=== PATIENT | female | born 1945 | race Two or more races ===

== ENCOUNTER 2017-03-02 17:59 | Inpatient (IN) | payer MEDICARE, MEDICAID ==
[~2017-03-02] VITALS: Ht 167.6 cm; Wt 44.5 kg
[~2017-03-02 17:59] MED LIST: ALENDRONAT70 MG/75 M PO; ASPIRIN81 MG ORAL; CARAFATE1 G1 ORAL; CATAPRES0.1 MG ORAL; CIMETIDINE300 MG ORAL; CYPROHEPTADINE H4 MG PO; DOCUSATE SODIU250 MG ORAL; HYDROCHLOROTHIA50 MG ORAL; IPRATROPIU0.2 MG/1 M HHN; MULTIVITAMINS1 EAC2 ORAL; NITROSTAT0.4 M2 SL; NORCO 5-325 TA1 EACH ORAL; OMEPRAZOLE20 M2 ORAL; PRAVACHOL20 MG ORAL; PRAVASTATIN SOD20 M1 ORAL; PREDNISONE20 M1 PO; PROCHLORPERAZINE5 MG ORAL; SPIRIVA18 MCG INH; TYLENOL650 MG/20. ORAL; VERAPAMIL ER240 M2 PO; VITAMIN C500 M1 ORAL
[2017-03-02] MEDS ORDERED: Solu-MEDROL 125mg Inj IVP ONE (18:30)
[2017-03-02] MEDS ORDERED: Terbutaline 1mg/ml Inj SUBQ ONE (18:30)
[2017-03-02] MEDS ORDERED: cefTRIAXone 2 GM in NS 110 ML IVPB ONE (18:30)
[2017-03-02] MEDS ORDERED: Azithromycin 500 MG in NS 275 ML IV ONE (18:30)
[2017-03-02 18:32] VITALS: BP 176/84
[2017-03-02] MEDS ORDERED: Azithromycin Inj IV ONE (18:35)
[2017-03-02] MEDS: Ipratropium 0.02% Inh Soln 2.5ml UD HHN SCH ×3 (18:49→19:01)
[2017-03-02] MEDS: Albuterol ud Inhalation HHN SCH ×3 (18:50→19:01)
[2017-03-02 19:13] VITALS: BP 145/74
[2017-03-02 19:15] LABS: BASOPHILS % (AUTO) 1.4 % (0.0-2.0); LYMPHOCYTES % (AUTO) 9.9 % (20.0-45.0); MEAN CORPUSCULAR HEMOGLOBIN 33.1 PG (27.0-31.0); MEAN CORPUSCULAR HGB CONC 31.9 G/DL (32.0-36.0); MEAN CORPUSCULAR VOLUME 104 FL (80-99); MEAN PLATELET VOLUME 7.6 FL (6.5-10.1); NEUTROPHILS % (AUTO) 84.7 % (45.0-75.0); PLATELET COUNT 142 K/UL (150-450); RED BLOOD COUNT 3.76 M/UL (4.20-5.40); WHITE BLOOD COUNT 7.9 K/UL (4.8-10.8)
[2017-03-02 19:26] LABS: ALBUMIN/GLOBULIN RATIO 1.4 (1.0-2.7); CALCIUM 8.5 mg/dL (8.6-10.2); POTASSIUM 3.7 mEQ/L (3.4-4.9); TOTAL PROTEIN 6.1 g/dL (6.6-8.7); TROPONIN I < 0.30 ng/mL (<=0.30)
[2017-03-02 19:37] LABS: CKMB 2.8 ng/mL (< 3.8)
[2017-03-02 20:49] VITALS: BP 113/52
--- NOTE | 2017-03-02 21:27 | Emergency Room Report ---
History of Present Illness General Chief Complaint: Dyspnea/Respdistress Source: Patient, EMS Present Illness HPI 71YO F presents BIBEMS with severe SOB for last day. Assoc with cough but no fever/chills, chest pain, ABd pain, urinary complaints. No improvement with Nebs at home. Given nebs en route by EMS. history of asthma. Never been intubated but has been on BIPAP before. Allergies: Coded Allergies: No Known Allergies (Unverified , 12/10/14) Patient History Past Medical History: asthma Past Surgical History: none Pertinent Family History: none Social History: Reports: smoking Now: No Immunizations: UTD Reviewed Nursing Documentation: PMH: Agreed, PSxH: Agreed Nursing Documentation-PMH Hx Hypertension: Yes Hx COPD: Yes Review of Systems All Other Systems: negative except mentioned in HPI Physical Exam Vital Signs Date Time Temp Pulse Resp B/P Pulse Ox O2 Delivery O2 Flow Rate FiO2 03/02/17 17:54 135 24 176/84 93 Room Air 03/02/17 18:30 30 03/02/17 18:32 4.0 03/02/17 18:32 101.9 Sp02 EP Interpretation: reviewed, abnormal General Appearance: normal inspection, well appearing, alert, GCS 15, non-toxic , moderate distress Head: normocephalic, atraumatic Eyes: bilateral eye EOMI, bilateral eye PERRL ENT: normal ENT inspection, hearing grossly normal, normal voice Neck: normal inspection, full range of motion, supple, no bony tend Respiratory: normal inspection, respiratory distress, decreased breath sounds, accessory muscle use, wheezing Cardiovascular #1: regular rate, rhythm, no edema Gastrointestinal: normal inspection, normal bowel sounds, non tender, soft, no guarding, no hernia Genitourinary: no CVA tenderness Musculoskeletal: normal inspection, back normal, normal range of motion, Angella' s Sign negative Neurologic: normal inspection, alert, oriented x3, responsive, intake man III-XII nml as tested, motor strength/tone normal, speech normal Psychiatric: normal inspection, judgement/insight normal, mood/affect normal Skin: normal inspection, normal color, no rash Lymphatic: normal inspection Medical Decision Making Medicare Attestation I Domenic Bundy MD hereby attest that the medical record entry for date of service, 11/02/16 accurately reflects signatures/notations that I made in my capacity as MD when I treated/diagnosed the above listed Medicare beneficiary. I attest that this information is true, accurate and complete to the best of my knowledge. I understand that any falsification, omission, or concealment of material fact may subject me to administrative, civil, or criminal liability. This patient warrants hospital admission for extreme of age and has a condition that cannot be treated as outpatient. Diagnostic Impression: Primary Impression: COPD exacerbation ER Course Labs: No leuks. H&H stable. Troponin, BNP WNL. CXR: No PNA A: Dyspnea, COPD/asthma exacerbation Significant improvement after bipap, Mg, nebs, steroids No obvious Pna Empiric Azithro given for COPD exac Blood Cx pending Endorsed to Dr Gomez at 1005pm Rhythm Strip Diag. Results EP Interpretation: yes Rate: 112 Rhythm: NSR, no PVC's, no ectopy Chest X-Ray Diagnostic Results EP Interpretation: Yes Findings: no consolidation, no effusion, no pneumothorax, no acute cardiopulmonary disease Number of Views: 1 Last Vital Signs Date Time Temp Pulse Resp B/P Pulse Ox O2 Delivery O2 Flow Rate FiO2 03/02/17 21:06 114 16 97 Facial 30 03/02/17 20:49 98.4 113/52 03/02/17 18:32 4.0 Status: improved Disposition: ADMITTED INPATIENT Condition: Serious DOMENIC BUNDY M.D. Mar 02, 2017 21:27
[2017-03-02 22:30] VITALS: BP 126/55
[2017-03-02] MEDS ORDERED: UNOBMED (23:27)
[2017-03-03] MEDS ORDERED: DuoNeb 0.5-3(2.5)mg/3ml neb HHN PRN (00:15)
[2017-03-03] MEDS ORDERED: LORazepam Inj 2mg/ml 1ml IV PRN (00:15)
[2017-03-03] MEDS ORDERED: Norco 5mg/325mg tab ORAL PRN (00:15)
[2017-03-03] MEDS ORDERED: Ketorolac 30mg Inj IV PRN (00:15)
[2017-03-03] MEDS ORDERED: Promethazine/Codeine 5ml UD ORAL PRN (00:15)
[2017-03-03] MEDS ORDERED: Morphine Sulfate 2mg/ml Inj IVP PRN (00:15)
[2017-03-03] MEDS ORDERED: Nitroglycerin Subl 0.4mg tab (Bottle Of 25) SL PRN (00:15)
[2017-03-03 00:30] VITALS: BP 133/53
[2017-03-03 01:30] VITALS: BP 135/60
[2017-03-03 04:00] VITALS: BP 149/80
[2017-03-03] MEDS ORDERED: Zosyn 2.25gm inj ONE (05:03)
[2017-03-03] MEDS: Piperacillin/Tazobactam 2.25 GM in D5W 55 ML IV SCH ×3 (05:40→21:25)
[2017-03-03] MEDS: Solu-MEDROL 125mg Inj IV SCH ×4 (06:09→23:53)
[2017-03-03] MEDS: NovoLOG Insulin Flexpen SUBQ SCH ×4 (06:46→20:10)
[2017-03-03 08:00] VITALS: BP 133/83
[2017-03-03] MEDS: Heparin 5000 units/ml inj SUBQ SCH ×2 (09:00→20:09)
[2017-03-03] MEDS: Aspirin Baby 81mg ORAL SCH (09:12)
[2017-03-03] MEDS: Theophylline ER 100mg ORAL SCH ×2 (09:12→20:08)
--- NOTE | 2017-03-03 10:38 | Consultation ---
History of Present Illness General Date patient seen: Mar 03, 2017 Chief Complaint: Dyspnea/Respdistress Referring physician: Dr. evans Reason for Consultation: dyspnea Present Illness HPI 71 year old female with hx of chronic lung disease on home O2, cachectic, chronically ill looking lady was brought in by paramedics because of dyspnea. Her Pulse oximeter was 70% on nasal cannula. She was in respiratory distress in ER and was put on BIPAP. Her CT angio didn't show any PE, but showed chronic changes c/w COPD. She had been coughing up some phlegm and is having fevers for the last few days. Allergies: Coded Allergies: No Known Allergies (Unverified , 12/10/14) Medication History Scheduled Alendronate Sodium (Alendronate Sodium), 70 MG PO QWEEK, (Reported) Ascorbic Acid* (Vitamin C*), 500 MG ORAL TWICE A DAY, (Reported) Aspirin* (Aspirin*), 81 MG ORAL DAILY, (Reported) Clonidine Hcl* (Catapres*), 0.1 MG ORAL TID, (Reported) Docusate Sodium* (Docusate Sodium*), 250 MG ORAL DAILY, (Reported) Hydrochlorothiazide* (Hydrochlorothiazide*), 50 MG ORAL DAILY, (Reported) Multivitamins* (Multivitamins*), 1 TAB ORAL DAILY, (Reported) Omeprazole (Omeprazole), 20 MG ORAL DAILY, (Reported) Pravastatin Sod* (Pravachol*), 20 MG ORAL BEDTIME, (Reported) Pravastatin Sod* (Pravastatin Sod*), 20 MG ORAL BEDTIME, (Reported) Prednisone (Prednisone), 20 MG PO DAILY, (Reported) Sucralfate* (Carafate*), 1 GM ORAL FOUR TIMES A DAY, (Reported) Tiotropium [place]* (Spiriva*), 1 PUFF INH DAILY, (Reported) Verapamil Hcl (Verapamil Er), 240 MG PO DAILY, (Reported) Scheduled PRN Acetaminophen (Acetaminophen), 650 MG ORAL Q6H PRN for Prn Headache/Temp > 101, (Reported) Cyproheptadine Hcl (Cyproheptadine Hcl), 4 MG PO PRN PRN for Itching, (Reported) Hydrocodone Bit/Acetaminophen 5-325* (Kent 5-325*), 1 TAB ORAL Q4H PRN for For Pain, (Reported) Ipratropium [place] 0.5MG/2.5ML (Ipratropium [place] 0.5MG/2.5ML), 0.5 MG HHN Q4HR PRN for Shortness of Breath, (Reported) Nitroglycerin (Nitrostat), 0.4 MG SL for cp, (Reported) Miscellaneous Medications Unable to Obtain Medications (Unable To Obtain Meds), (Reported) Patient History Healthcare decision maker Resuscitation status Full Code Advanced Directive on File No Past Medical/Surgical History Past Medical/Surgical History: (1) Emphysema/COPD (2) Debility (3) Cachexia Review of Systems All Other Systems: negative except mentioned in HPI Physical Exam General Appearance: cachetic Lines, tubes and drains: peripheral HEENT: normocephalic, atraumatic Neck: non-tender, normal alignment Respiratory/Chest: rhonchi - bilaterally Cardiovascular/Chest: normal peripheral pulses, normal rate Abdomen: normal bowel sounds, non tender Genitourinary/Rectal: normal genital exam, heme negative stool Extremities: normal range of motion Neurologic: media associate II-XII grossly normal Last 24 Hour Vital Signs Date Time Temp Pulse Resp B/P Pulse Ox O2 Delivery O2 Flow Rate FiO2 03/03/17 09:02 94 16 99 8.0 03/03/17 08:00 96.3 104 20 133/83 100 Venturi Mask 40 03/03/17 06:53 97 16 99 8.0 03/03/17 05:03 105 14 97 8.0 03/03/17 04:00 97.7 96 20 149/80 100 Bi-pap 03/03/17 04:00 30 03/03/17 04:00 96 03/03/17 03:20 106 20 98 Facial 30 03/03/17 01:30 97.0 103 22 135/60 99 Bi-pap 03/03/17 01:20 98.5 96 20 133/53 99 Bi-pap 30 03/03/17 00:51 99 20 99 Facial 30 03/03/17 00:30 98.5 96 28 133/53 100 Bi-pap 30 03/02/17 23:30 107 22 98 Facial 30 03/02/17 22:30 98.8 106 25 126/55 100 Bi-pap 30 03/02/17 21:06 114 16 97 Facial 30 03/02/17 20:49 98.4 118 19 113/52 98 Bi-pap 30 03/02/17 19:18 101.0 03/02/17 19:13 129 25 145/74 94 Bi-pap 03/02/17 19:00 127 20 100 Bi-pap 30 03/02/17 18:50 126 20 100 Bi-pap 30 03/02/17 18:50 128 20 100 Bi-pap 30 03/02/17 18:40 127 24 100 Bi-pap 30 03/02/17 18:40 127 20 100 Bi-pap 30 03/02/17 18:32 101.9 138 24 176/84 93 Room Air 03/02/17 18:32 135 24 Nasal Cannula 4.0 03/02/17 18:30 120 33 100 Bi-pap 30 03/02/17 18:30 127 33 100 Facial 30 03/02/17 18:30 30 03/02/17 17:54 135 24 176/84 93 Room Air Intake and Output 03/02/17 03/03/17 19:00 07:00 Intake Total 100 ml Output Total 200 ml Balance 100 ml -200 ml Intake Oral 100 ml Output Urine Total 200 ml # Voids 1 # Bowel Movements 2 Laboratory Tests Test 03/02/17 18:45 White Blood Count 7.9 K/UL (4.8-10.8) Red Blood Count 3.76 M/UL (4.20-5.40) L Hemoglobin 12.4 G/DL (12.0-16.0) Hematocrit 39.0 % (37.0-47.0) Mean Corpuscular Volume 104 FL (80-99) H Mean Corpuscular Hemoglobin 33.1 PG (27.0-31.0) H Mean Corpuscular Hemoglobin Concent 31.9 G/DL (32.0-36.0) L Red Cell Distribution Width 13.0 % (11.6-14.8) Platelet Count 142 K/UL (150-450) L Mean Platelet Volume 7.6 FL (6.5-10.1) Neutrophils (%) (Auto) 84.7 % (45.0-75.0) H Lymphocytes (%) (Auto) 9.9 % (20.0-45.0) L Monocytes (%) (Auto) 4.0 % (1.0-10.0) Eosinophils (%) (Auto) 0.0 % (0.0-3.0) Basophils (%) (Auto) 1.4 % (0.0-2.0) Sodium Level 136 mEQ/L (135-145) Potassium Level 3.7 mEQ/L (3.4-4.9) Chloride Level 97 mEQ/L (98-107) L Carbon Dioxide Level 21 mEQ/L (20-30) Anion Gap 18 (5-15) H Blood Urea Nitrogen 10 mg/dL (7-23) Creatinine 1.0 mg/dL (0.5-0.9) H Estimat Glomerular Filtration Rate 55.0 mL/min (>60) Glucose Level 106 mg/dL (74-106) Calcium Level 8.5 mg/dL (8.6-10.2) L Total Bilirubin 0.9 mg/dL (0.0-1.2) Aspartate Amino Transf (AST/SGOT) 40 U/L (5-40) Alanine Aminotransferase (ALT/SGPT) 21 U/L (3-33) Alkaline Phosphatase 48 U/L (35-104) Total Creatine Kinase 426 U/L (26-140) H Creatine Kinase MB 2.8 ng/mL (< 3.8) Creatine Kinase MB Relative Index 0.6 Troponin I < 0.30 ng/mL (<=0.30) Pro-B-Type Natriuretic Peptide 249 pg/mL (0-125) H Total Protein 6.1 g/dL (6.6-8.7) L Albumin 3.6 g/dL (3.5-5.2) Globulin 2.5 g/dL Albumin/Globulin Ratio 1.4 (1.0-2.7) Height (Feet): 5 Height (Inches): 6.00 Weight (Pounds): 98 Medications Current Medications Medications (Trade) Dose Ordered Sig/Khloe Route PRN Reason Start Time Stop Time Status Last Admin Dose Admin Acetaminophen/ Hydrocodone Bitart ([place] 5/325) 1 tab Q4H PRN ORAL For Pain 03/03/17 00:15 03/10/17 00:14 Albuterol/ Ipratropium (DuoNeb 0.5-3(2.5)mg/3ml) 3 ml Q4HRT PRN HHN dyspnea 03/03/17 00:15 03/08/17 00:14 Aspirin (ASA) 81 mg DAILY ORAL 03/03/17 09:00 04/02/17 08:59 03/03/17 09:12 Dextrose (Dextrose 50%) STAT PRN IV Hypoglycemia 03/03/17 00:15 04/02/17 00:14 Heparin Sodium (Porcine) (Heparin 5000 units/ml) 5,000 units EVERY 12 HOURS SUBQ 03/03/17 09:00 04/02/17 08:59 Insulin Aspart (NovoLOG) BEFORE MEALS AND HS SUBQ 03/03/17 06:30 04/02/17 06:29 03/03/17 06:46 Lorazepam (Ativan 2mg/ml 1ml) 0.5 mg Q4H PRN IV For Anxiety 03/03/17 00:15 03/10/17 00:14 Methylprednisolone Sodium Succinate (Solu-MEDROL) 60 mg EVERY 6 HOURS IV 03/03/17 06:00 04/02/17 05:59 03/03/17 06:09 Morphine Sulfate (Morphine Sulfate) 2 mg Q4H PRN IVP severe pain 7-10 03/03/17 00:15 03/10/17 00:14 Nitroglycerin (Ntg) 0.4 mg Q5M X 3 DOSES PRN SL Prn Chest Pain 03/03/17 00:15 04/02/17 00:14 Ondansetron HCl (Zofran) 4 mg Q6H PRN IVP Nausea & Vomiting 03/03/17 00:15 04/02/17 00:14 Piperacillin Sod/ Tazobactam Sod/ Dextrose (Zosyn/D5W) 55 ml @ 110 mls/hr EVERY 8 HOURS IV 03/03/17 06:00 03/08/17 05:59 03/03/17 05:40 Pravastatin Sodium (Pravachol) 20 mg BEDTIME ORAL 03/03/17 21:00 04/02/17 20:59 Promethazine HCl/ Codeine (Phenergan with Codeine) 5 ml Q6H PRN ORAL cough 03/03/17 00:15 04/02/17 00:14 Temazepam (Restoril) 15 mg HSPRN PRN ORAL Insomnia 03/03/17 00:15 03/10/17 00:14 Theophylline 100 mg 100 mg EVERY 12 HOURS ORAL 03/03/17 09:00 04/02/17 08:59 03/03/17 09:12 Assessment/Plan Problem List: (1) COPD exacerbation ICD Codes: J44.1 - Chronic obstructive pulmonary disease with (acute) exacerbation SNOMED: 188025687, 261891868 (2) Bronchitis ICD Codes: J40 - Bronchitis SNOMED: 92963226 (3) Cachexia ICD Codes: R64 - Cachexia SNOMED: 942324889 (4) Debility ICD Codes: R53.81 - Debility SNOMED: 29950828 Assessment/Plan titrate bipap and oxygen IV steroids IV antibiotics check sputum dvt prophylaxis might go to med/surg in am . MARITZA SNEED Mar 03, 2017 10:38
[2017-03-03 11:02] LABS: MEAN CORPUSCULAR HEMOGLOBIN 32.6 PG (27.0-31.0); MEAN CORPUSCULAR HGB CONC 31.5 G/DL (32.0-36.0); MEAN CORPUSCULAR VOLUME 104 FL (80-99); MEAN PLATELET VOLUME 7.4 FL (6.5-10.1); PLATELET COUNT 186 K/UL (150-450); RED BLOOD COUNT 4.25 M/UL (4.20-5.40); RED CELL DISTRIBUTION WIDTH 13.1 % (11.6-14.8)
[2017-03-03 11:40] LABS: ALANINE AMINOTRANSFERASE 22 U/L (3-33); ALBUMIN/GLOBULIN RATIO 1.2 (1.0-2.7); ANION GAP 18 (5-15); ASPARTATE AMINO TRANSFERASE 38 U/L (5-40); CALCIUM 8.9 mg/dL (8.6-10.2); CARBON DIOXIDE 23 mEQ/L (20-30); CHLORIDE 100 mEQ/L (98-107); CREATININE 0.9 mg/dL (0.5-0.9); GLOMERULAR FILTRATION RATE > 60 mL/min (>60); HEMOLYSIS 3; POTASSIUM 4.7 mEQ/L (3.4-4.9); SODIUM 141 mEQ/L (135-145); TOTAL PROTEIN 6.7 g/dL (6.6-8.7)
[2017-03-03 11:47] LABS: BAND NEUTROPHILS % (MANUAL) 0 % (0-8); BASOPHILS % (MANUAL) 0 % (0-2); EOSINOPHILS % (MANUAL) 0 % (0-3); HYPOCHROMASIA 1+; LYMPHOCYTES % (MANUAL) 7 % (20-45); MACROCYTES 1+; NEUTROPHILS % (MANUAL) 91 % (45-75); PLATELET ESTIMATE ADEQUATE; PLATELET MORPHOLOGY NORMAL; TOTAL CELLS COUNTED 100
[2017-03-03 12:00] VITALS: BP 157/79
--- NOTE | 2017-03-03 12:52 | History & Physical ---
History and Physical History & Physicial Dictated for Int Med-Dr Gomez no. [id number]. JESUS WALL Mar 03, 2017 12:52
[2017-03-03] MEDS ORDERED: Tubing IV Secondary IV ONE (18:35)
[2017-03-03] MEDS ORDERED: NS 275ml ONE (18:35)
[2017-03-03 20:00] VITALS: BP 135/74
--- NOTE | 2017-03-03 23:08 | Cardiology Report ---
APPROVED REPORT EKG Measurement Heart [id number] Sinus tachycardia with occasional premature ventricular complexes Possible Left atrial enlargement Cannot rule out Anteroseptal infarct, age undetermined Abnormal ECG
[2017-03-04] VITALS (7 sets, daily range): BP systolic 129–152; BP diastolic 61–80
[2017-03-04 05:06] LABS: MEAN CORPUSCULAR HEMOGLOBIN 32.6 PG (27.0-31.0); MEAN CORPUSCULAR HGB CONC 31.8 G/DL (32.0-36.0); MEAN CORPUSCULAR VOLUME 103 FL (80-99); MEAN PLATELET VOLUME 7.4 FL (6.5-10.1); PLATELET COUNT 196 K/UL (150-450); RED BLOOD COUNT 4.33 M/UL (4.20-5.40); RED CELL DISTRIBUTION WIDTH 12.8 % (11.6-14.8); WHITE BLOOD COUNT 11.1 K/UL (4.8-10.8)
[2017-03-04 05:31] LABS: ALANINE AMINOTRANSFERASE 22 U/L (3-33); ALBUMIN/GLOBULIN RATIO 1.1 (1.0-2.7); ANION GAP 14 (5-15); ASPARTATE AMINO TRANSFERASE 34 U/L (5-40); CALCIUM 8.7 mg/dL (8.6-10.2); CARBON DIOXIDE 22 mEQ/L (20-30); CHLORIDE 106 mEQ/L (98-107); CREATININE 0.8 mg/dL (0.5-0.9); GLOMERULAR FILTRATION RATE > 60 mL/min (>60); HEMOLYSIS 2; POTASSIUM 4.7 mEQ/L (3.4-4.9); SODIUM 142 mEQ/L (135-145); TOTAL PROTEIN 6.4 g/dL (6.6-8.7)
[2017-03-04] MEDS: Solu-MEDROL 125mg Inj IV SCH ×3 (05:56→22:03)
[2017-03-04] MEDS: Piperacillin/Tazobactam 2.25 GM in D5W 55 ML IV SCH ×2 (05:57→14:00)
[2017-03-04] MEDS: NovoLOG Insulin Flexpen SUBQ SCH ×4 (06:00→22:06)
[2017-03-04] MEDS: Theophylline ER 100mg ORAL SCH ×2 (08:55→22:02)
[2017-03-04] MEDS: Aspirin Baby 81mg ORAL SCH (08:55)
[2017-03-04] MEDS: Heparin 5000 units/ml inj SUBQ SCH ×2 (08:57→22:07)
--- NOTE | 2017-03-04 08:58 | History and Physical Report ---
CHIEF COMPLAINT: The patient is a 71-year-old female with a history of chronic obstructive pulmonary disease, who presents with chief complaint of shortness of breath. HISTORY OF PRESENT ILLNESS: Began on 03/02/2017. The patient states she awoke with a cough. Cough was productive of a whitish sputum. The patient denies fevers or chills. The patient states she became increasingly short of breath. The patient called EMS. The patient was transported to [place] emergency room. The patient was admitted for acute exacerbation of chronic obstructive pulmonary disease. PAST MEDICAL HISTORY: Significant for, 1. Chronic obstructive pulmonary disease. 2. Hypertension. 3. Osteoporosis. PAST SURGICAL HISTORY: Significant for small bowel obstruction and lysis of adhesions x2. CURRENT MEDICATIONS: 1. Fosamax 70 mg one tablet p.o. q. weekly. 2. Vitamin C 500 mg one tablet p.o. twice daily. 3. Aspirin 81 mg one tablet p.o. daily. 4. Clonidine 0.1 mg one tablet p.o. 3 times daily. 5. Zyrtec 4 mg one tablet p.o. daily. 6. Hydrochlorothiazide 50 mg one tablet p.o. daily. 7. Renick 5/325 mg one tablet p.o. q.4 hours p.r.n. 8. Atrovent 0.5 mg nebulized q.4 hours p.r.n. 9. Multivitamin daily. 10. Nitroglycerin 0.4 mg sublingual p.r.n. 11. Omeprazole 20 mg one tablet p.o. daily. 12. Pravastatin 20 mg one tablet p.o. daily. 13. Prednisone 20 mg one tablet p.o. daily. 14. Sucralfate 1 g p.o. 4 times daily. 15. Spiriva one puff daily. 16. Verapamil 240 mg one tablet p.o. daily. ALLERGIES: No known drug allergies. SOCIAL HISTORY: The patient is a . The patient denies tobacco or alcohol use. The patient states she quit smoking in 1998. REVIEW OF SYSTEMS: Constitutional: The patient denies weight loss or weight gain. The patient denies fevers or chills. HEENT: The patient denies ear or throat pain. Cardiovascular: The patient denies palpitations or chest pain. Chest: The patient complains of cough as above. The patient complains of wheezes. The patient complains of sputum production. Abdomen: The patient denies nausea, vomiting, diarrhea, or constipation. Genitourinary: The patient denies dysuria or increased frequency of urination. Neuromuscular: The patient denies seizures or generalized weakness. PHYSICAL EXAMINATION: VITAL SIGNS: Temperature 96.3 degrees, respirations 20, pulse 104, and blood pressure 133/83. GENERAL: The patient is a thin-appearing, female, in no apparent distress. HEENT: Eyes, pupils are equal and responsive to light and accommodation. Extraocular movements are intact. NECK: Supple without lymphadenopathy. CHEST: Few wheezes at bilateral lower bases otherwise clear to auscultation bilaterally without wheezes or rales. CARDIOVASCULAR: Regular rhythm and rate. S1 and S2 are normal without murmurs, rubs, or gallops. ABDOMEN: Soft, nontender, and nondistended. Positive bowel sounds. No evidence of hepatosplenomegaly. Currently, no rebound or guarding noted. EXTREMITIES: Negative for clubbing, cyanosis, or edema. RECTAL/GENITAL: Refused. NEUROLOGIC: Cranial nerves II through XII are grossly intact without focal deficits. Motor strength is 5/5 bilaterally. Deep tendon reflexes are 2+ plantar. LABORATORY AND DIAGNOSTIC STUDIES: WBC 7.9, hemoglobin 12.4, hematocrit 39.0, and platelets 142,000. Sodium 136, potassium 3.7, chloride 97, CO2 29, BUN 10, creatinine 1.0, and glucose 106. Troponin is less than 0.3. BNP is 249. Chest x-ray is pending. ASSESSMENT: This is a 71-year-old female. 1. Chronic obstructive pulmonary disease, acute exacerbation. 2. Acute bronchitis. 3. Hypertension. 4. Osteoporosis. TREATMENT: 1. Chronic obstructive pulmonary disease exacerbation. Pulmonary consultation was obtained with Dr. Lior Ellis. The patient is currently receiving albuterol nebulized q.4 hours p.r.n. The patient is currently on Solu-Medrol intravenously. We will follow recommendation of Pulmonary. 2. Hypertension. Continue diltiazem as above. 3. Osteoporosis. Continue Fosamax as above. 4. Hypercholesterolemia. Continue Pravachol as above. Sunny Boss, M.D. DR: OLGA JOB#: [id number] CC:
--- NOTE | 2017-03-04 10:17 | Diagnostic Imaging Report ---
Indication: DYSPNEA Technique: One view of the chest Comparison: 12/10/2014 Findings: There is marked central bronchial wall thickening bilaterally again demonstrated. Old granulomas calcifications are seen at the right lung base. The lungs and pleural spaces are otherwise clear. Inspiration is better on the current exam. The heart size is normal. Impression: No acute process Evidence of old granulomatous disease Marked central bronchial wall thickening, suspect on the basis of chronic bronchitis/COPD changes
[2017-03-04] MEDS ORDERED: DuoNeb 0.5-3(2.5)mg/3ml neb HHN SCH (11:00)
[2017-03-04] MEDS ORDERED: Norco 5mg/325mg tab ORAL PRN (14:30)
[2017-03-04] MEDS ORDERED: Promethazine/Codeine 5ml UD ORAL PRN (14:30)
[2017-03-04] MEDS ORDERED: Nitroglycerin Subl 0.4mg tab (Bottle Of 25) SL PRN (15:00)
[2017-03-04] MEDS: DuoNeb 0.5-3(2.5)mg/3ml neb HHN SCH ×3 (15:00→22:01)
[2017-03-04] MEDS ORDERED: LORazepam Inj 2mg/ml 1ml IV PRN (15:00)
[2017-03-04] MEDS ORDERED: Morphine Sulfate 2mg/ml Inj IVP PRN (15:30)
--- NOTE | 2017-03-04 16:14 | Pulmonology Progress Note ---
Assessment/Plan Problems: (1) COPD exacerbation (2) Bronchitis (3) Cachexia (4) Debility Subjective Allergies: Coded Allergies: No Known Allergies (Unverified , 12/10/14) Objective Last 24 Hour Vital Signs Date Time Temp Pulse Resp B/P Pulse Ox O2 Delivery O2 Flow Rate FiO2 03/04/17 14:55 97.9 100 21 144/77 98 Venturi Mask 40 03/04/17 13:48 103 20 100 Venturi Mask 8.0 40 03/04/17 13:33 40 03/04/17 13:33 101 24 98 Venturi Mask 8.0 40 03/04/17 12:00 98.0 100 26 129/72 98 Venturi Mask 8.0 40 03/04/17 12:00 101 03/04/17 08:00 104 03/04/17 08:00 97.7 105 26 135/61 98 03/04/17 07:14 98 Venturi Mask 8.0 40 03/04/17 07:14 Venturi Mask 8.0 40 03/04/17 07:14 110 18 Venturi Mask 8.0 40 03/04/17 06:05 103 20 98 Venturi Mask 8.0 30 03/04/17 05:55 30 03/04/17 05:54 101 22 97 Venturi Mask 8.0 40 03/04/17 04:00 8.0 40 03/04/17 04:00 92 03/04/17 04:00 97.9 101 20 132/76 99 Venturi Mask 03/04/17 00:00 93 03/04/17 00:00 8.0 40 03/04/17 00:00 98.0 96 20 152/69 97 Venturi Mask 8.0 40 03/03/17 20:30 Venturi Mask 8.0 30 03/03/17 20:30 99 Venturi Mask 8.0 30 03/03/17 20:00 30 03/03/17 20:00 97.5 92 18 135/74 99 Bi-pap 03/03/17 20:00 96 03/03/17 18:37 105 35 99 30 03/03/17 18:30 30 03/03/17 17:01 87 18 98 8.0 Intake and Output 03/03/17 03/04/17 19:00 07:00 Intake Total 455 ml 165 ml Balance 455 ml 165 ml Intake Oral 400 ml IV Total 55 ml 165 ml # Voids 5 Microbiology Date/Time Source Procedure Growth Status 03/02/17 18:55 Blood Blood Culture - Preliminary NO GROWTH AFTER 24 HOURS Resulted 03/02/17 18:45 Blood Blood Culture - Preliminary NO GROWTH AFTER 24 HOURS Resulted Laboratory Tests 03/04/17 04:25: White Blood Count 11.1#H, Red Blood Count 4.33, Hemoglobin 14.1, Hematocrit 44.4 , Mean Corpuscular Volume 103H, Mean Corpuscular Hemoglobin 32.6H, Mean Corpuscular Hemoglobin Concent 31.8L, Red Cell Distribution Width 12.8, Platelet Count 196, Mean Platelet Volume 7.4, Neutrophils (%) (Auto) , Lymphocytes (%) (Auto) , Monocytes (%) (Auto) , Eosinophils (%) (Auto) , Basophils (%) (Auto) , Sodium Level 142, Potassium Level 4.7, Chloride Level 106 , Carbon Dioxide Level 22, Anion Gap 14, Blood Urea Nitrogen 17, Creatinine 0.8 , Estimat Glomerular Filtration Rate > 60, Glucose Level 151H, Calcium Level 8.7 , Total Bilirubin 0.5, Aspartate Amino Transf (AST/SGOT) 34, Alanine Aminotransferase (ALT/SGPT) 22, Alkaline Phosphatase 72, Total Protein 6.4L, Albumin 3.4L, Globulin 3.0, Albumin/Globulin Ratio 1.1 Current Medications Medications (Trade) Dose Ordered Sig/Khloe Route PRN Reason Start Time Stop Time Status Last Admin Dose Admin Acetaminophen/ Hydrocodone Bitart ([place] 5/325) 1 tab Q4H PRN ORAL Moderate Pain (Pain Scale 4-6) 03/04/17 14:30 03/11/17 14:29 Albuterol/ Ipratropium (DuoNeb 0.5-3(2.5)mg/3ml) 3 ml Q4HRT HHN 03/04/17 15:00 03/09/17 14:59 Aspirin (ASA) 81 mg DAILY ORAL 03/05/17 09:00 04/04/17 08:59 Dextrose (Dextrose 50%) STAT PRN IV Hypoglycemia 03/04/17 14:30 04/03/17 14:29 Heparin Sodium (Porcine) (Heparin 5000 units/ml) 5,000 units EVERY 12 HOURS SUBQ 03/04/17 21:00 04/03/17 20:59 Insulin Aspart (NovoLOG) BEFORE MEALS AND HS SUBQ 03/04/17 16:30 04/03/17 16:29 Lorazepam (Ativan 2mg/ml 1ml) 0.5 mg Q4H PRN IV For Anxiety 03/04/17 15:00 03/11/17 14:59 Methylprednisolone Sodium Succinate (Solu-MEDROL) 60 mg EVERY 6 HOURS IV 03/04/17 18:00 04/03/17 17:59 Morphine Sulfate (Morphine Sulfate) 2 mg Q4H PRN IVP Severe Pain (Pain Scale 7-10) 03/04/17 15:30 03/11/17 15:29 Nitroglycerin (Ntg) 0.4 mg Q5M X 3 DOSES PRN SL Prn Chest Pain 03/04/17 15:00 04/03/17 14:59 Ondansetron HCl (Zofran) 4 mg Q6H PRN IVP Nausea & Vomiting 03/04/17 14:30 04/03/17 14:29 Piperacillin Sod/ Tazobactam Sod/ Sodium Chloride (Zosyn/Sodium Chloride) 110 ml @ 27.5 mls/hr EVERY 8 HOURS IVPB 03/04/17 22:00 03/11/17 21:59 Pravastatin Sodium (Pravachol) 20 mg BEDTIME ORAL 03/04/17 21:00 04/03/17 20:59 Promethazine HCl/ Codeine (Phenergan with Codeine) 5 ml Q6H PRN ORAL cough 03/04/17 14:30 04/03/17 14:29 Temazepam (Restoril) 15 mg HSPRN PRN ORAL Insomnia 03/04/17 21:00 03/11/17 20:59 Theophylline (Faisal-Dur) 100 mg EVERY 12 HOURS ORAL 03/04/17 21:00 04/03/17 20:59 MARITZA SNEED Mar 04, 2017 16:14
[2017-03-04] MEDS ORDERED: Sterile Water Irrig 1000ml IRRIG ONE (16:37)
--- NOTE | 2017-03-04 17:37 | Internal Med Progress Note ---
Subjective Date of Service: Mar 04, 2017 Physician Name Jesus Wall Attending Physician Marco Gomez MD Current Medications Medications (Trade) Dose Ordered Sig/Khloe Route PRN Reason Start Time Stop Time Status Last Admin Dose Admin Acetaminophen/ Hydrocodone Bitart ([place] 5/325) 1 tab Q4H PRN ORAL Moderate Pain (Pain Scale 4-6) 03/04/17 14:30 03/11/17 14:29 Albuterol/ Ipratropium (DuoNeb 0.5-3(2.5)mg/3ml) 3 ml Q4HRT HHN 03/04/17 15:00 03/09/17 14:59 Aspirin (ASA) 81 mg DAILY ORAL 03/05/17 09:00 04/04/17 08:59 Dextrose (Dextrose 50%) STAT PRN IV Hypoglycemia 03/04/17 14:30 04/03/17 14:29 Heparin Sodium (Porcine) (Heparin 5000 units/ml) 5,000 units EVERY 12 HOURS SUBQ 03/04/17 21:00 04/03/17 20:59 Insulin Aspart (NovoLOG) BEFORE MEALS AND HS SUBQ 03/04/17 16:30 04/03/17 16:29 03/04/17 16:49 Lorazepam (Ativan 2mg/ml 1ml) 0.5 mg Q4H PRN IV For Anxiety 03/04/17 15:00 03/11/17 14:59 Methylprednisolone Sodium Succinate (Solu-MEDROL) 60 mg EVERY 12 HOURS IV 03/04/17 21:00 04/03/17 20:59 Morphine Sulfate (Morphine Sulfate) 2 mg Q4H PRN IVP Severe Pain (Pain Scale 7-10) 03/04/17 15:30 03/11/17 15:29 Nitroglycerin (Ntg) 0.4 mg Q5M X 3 DOSES PRN SL Prn Chest Pain 03/04/17 15:00 04/03/17 14:59 Ondansetron HCl (Zofran) 4 mg Q6H PRN IVP Nausea & Vomiting 03/04/17 14:30 04/03/17 14:29 Piperacillin Sod/ Tazobactam Sod/ Sodium Chloride (Zosyn/Sodium Chloride) 110 ml @ 27.5 mls/hr EVERY 8 HOURS IVPB 03/04/17 22:00 03/11/17 21:59 Pravastatin Sodium (Pravachol) 20 mg BEDTIME ORAL 03/04/17 21:00 04/03/17 20:59 Promethazine HCl/ Codeine (Phenergan with Codeine) 5 ml Q6H PRN ORAL cough 03/04/17 14:30 04/03/17 14:29 Temazepam (Restoril) 15 mg HSPRN PRN ORAL Insomnia 03/04/17 21:00 03/11/17 20:59 Theophylline (Faisal-Dur) 100 mg EVERY 12 HOURS ORAL 03/04/17 21:00 04/03/17 20:59 Allergies: Coded Allergies: No Known Allergies (Unverified , 12/10/14) ROS Limited/Unobtainable: No Constitutional: Reports: no symptoms HEENT: Reports: no symptoms Cardiovascular: Reports: no symptoms Respiratory: Reports: cough, wheezing Gastrointestinal/Abdominal: Reports: no symptoms Genitourinary: Reports: no symptoms Neurologic/Psychiatric: Reports: no symptoms Subjective 71 YO F admitted with COPD exacerbation and bronchitis. On venturi mask. Cover for Int Med-Dr Gomez. Objective Last Vital Signs Date Time Temp Pulse Resp B/P Pulse Ox O2 Delivery O2 Flow Rate FiO2 03/04/17 14:55 97.9 100 21 144/77 98 Venturi Mask 40 03/04/17 13:48 8.0 General Appearance: mild distress, cachetic, thin EENT: PERRL/EOMI, normal ENT inspection, TMs normal Neck: non-tender, normal alignment, supple, normal inspection Cardiovascular: normal peripheral pulses, normal rate, regular rhythm, no gallop/murmur, no JVD Respiratory/Chest: chest wall non-tender, respiratory distress, crackles/rales , rhonchi - bilaterally, expiratory wheezing Abdomen: normal bowel sounds, non tender, soft, no organomegaly, no mass Extremities: normal range of motion, non-tender 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, no motor/sensory deficits Skin: normal pigmentation, warm/dry Laboratory Tests Test 03/04/17 04:25 White Blood Count 11.1 K/UL (4.8-10.8) #H Red Blood Count 4.33 M/UL (4.20-5.40) Hemoglobin 14.1 G/DL (12.0-16.0) Hematocrit 44.4 % (37.0-47.0) Mean Corpuscular Volume 103 FL (80-99) H Mean Corpuscular Hemoglobin 32.6 PG (27.0-31.0) H Mean Corpuscular Hemoglobin Concent 31.8 G/DL (32.0-36.0) L Red Cell Distribution Width 12.8 % (11.6-14.8) Platelet Count 196 K/UL (150-450) Mean Platelet Volume 7.4 FL (6.5-10.1) Neutrophils (%) (Auto) % (45.0-75.0) Lymphocytes (%) (Auto) % (20.0-45.0) Monocytes (%) (Auto) % (1.0-10.0) Eosinophils (%) (Auto) % (0.0-3.0) Basophils (%) (Auto) % (0.0-2.0) Sodium Level 142 mEQ/L (135-145) Potassium Level 4.7 mEQ/L (3.4-4.9) Chloride Level 106 mEQ/L (98-107) Carbon Dioxide Level 22 mEQ/L (20-30) Anion Gap 14 (5-15) Blood Urea Nitrogen 17 mg/dL (7-23) Creatinine 0.8 mg/dL (0.5-0.9) Estimat Glomerular Filtration Rate > 60 mL/min (>60) Glucose Level 151 mg/dL (74-106) H Calcium Level 8.7 mg/dL (8.6-10.2) Total Bilirubin 0.5 mg/dL (0.0-1.2) Aspartate Amino Transf (AST/SGOT) 34 U/L (5-40) Alanine Aminotransferase (ALT/SGPT) 22 U/L (3-33) Alkaline Phosphatase 72 U/L (35-104) Total Protein 6.4 g/dL (6.6-8.7) L Albumin 3.4 g/dL (3.5-5.2) L Globulin 3.0 g/dL Albumin/Globulin Ratio 1.1 (1.0-2.7) Microbiology Date/Time Source Procedure Growth Status 03/02/17 18:55 Blood Blood Culture - Preliminary NO GROWTH AFTER 24 HOURS Resulted 03/02/17 18:45 Blood Blood Culture - Preliminary NO GROWTH AFTER 24 HOURS Resulted Intake and Output 03/03/17 03/04/17 19:00 07:00 Intake Total 455 ml 165 ml Balance 455 ml 165 ml Intake Oral 400 ml IV Total 55 ml 165 ml # Voids 5 Assessment/Plan Problem List: (1) HTN (hypertension) (2) Osteoporosis (3) COPD exacerbation Assessment & Plan: Continue IV solumedrol and duoneb. See pulmonary note. (4) Dyspnea (5) Bronchitis Assessment & Plan: continue zosyn (6) Hypercholesterolemia Assessment & Plan: cont pravastatin. Status: not improved JESUS WALL Mar 04, 2017 17:37
[2017-03-04] MEDS ORDERED: Solu-MEDROL 125mg Inj IV SCH (18:00)
[2017-03-04] MEDS: Piperacillin/Tazobactam 3.375 GM in NS 110 ML IVPB SCH (22:04)
[2017-03-05] VITALS: BP 162/82
[2017-03-05] MEDS: DuoNeb 0.5-3(2.5)mg/3ml neb HHN SCH ×4 (03:24→15:25)
[2017-03-05 04:00] VITALS: BP 148/84
[2017-03-05 06:13] LABS: MEAN CORPUSCULAR HEMOGLOBIN 33.1 PG (27.0-31.0); MEAN CORPUSCULAR HGB CONC 31.7 G/DL (32.0-36.0); MEAN CORPUSCULAR VOLUME 105 FL (80-99); MEAN PLATELET VOLUME 7.7 FL (6.5-10.1); PLATELET COUNT 208 K/UL (150-450); RED BLOOD COUNT 4.18 M/UL (4.20-5.40); RED CELL DISTRIBUTION WIDTH 13.6 % (11.6-14.8); WHITE BLOOD COUNT 7.4 K/UL (4.8-10.8)
[2017-03-05] MEDS: Piperacillin/Tazobactam 3.375 GM in NS 110 ML IVPB SCH ×2 (06:18→13:22)
[2017-03-05] MEDS: NovoLOG Insulin Flexpen SUBQ SCH ×3 (06:24→17:14)
[2017-03-05 06:44] LABS: ALANINE AMINOTRANSFERASE 23 U/L (3-33); ALBUMIN/GLOBULIN RATIO 1.4 (1.0-2.7); ANION GAP 18 (5-15); ASPARTATE AMINO TRANSFERASE 30 U/L (5-40); CALCIUM 8.7 mg/dL (8.6-10.2); CARBON DIOXIDE 23 mEQ/L (20-30); CHLORIDE 100 mEQ/L (98-107); CREATININE 0.9 mg/dL (0.5-0.9); GLOMERULAR FILTRATION RATE > 60 mL/min (>60); HEMOLYSIS 54; MAGNESIUM 2.2 mg/dL (1.7-2.5); PHOSPHORUS 3.3 mg/dL (2.5-4.8); SODIUM 141 mEQ/L (135-145); TOTAL PROTEIN 6.2 g/dL (6.6-8.7)
[2017-03-05 07:36] LABS: ERYTHROCYTE SEDIMENTATION RATE 50 MM/HR (0-30)
[2017-03-05 08:15] VITALS: BP 143/64
[2017-03-05 08:47] LABS: ANISOCYTOSIS 1+; BAND NEUTROPHILS % (MANUAL) 1 % (0-8); BASOPHILS % (MANUAL) 0 % (0-2); EOSINOPHILS % (MANUAL) 0 % (0-3); LYMPHOCYTES % (MANUAL) 2 % (20-45); MACROCYTES 1+; NEUTROPHILS % (MANUAL) 88 % (45-75); PLATELET ESTIMATE ADEQUATE; PLATELET MORPHOLOGY NORMAL; TOTAL CELLS COUNTED 100
[2017-03-05] MEDS: Solu-MEDROL 125mg Inj IV SCH (08:47)
[2017-03-05] MEDS: Theophylline ER 100mg ORAL SCH (08:47)
[2017-03-05] MEDS: Heparin 5000 units/ml inj SUBQ SCH (08:48)
[2017-03-05] MEDS ORDERED: Aspirin Baby 81mg ORAL SCH (09:00)
[2017-03-05 12:01] VITALS: BP 155/87
--- NOTE | 2017-03-05 15:47 | Pulmonology Progress Note ---
Assessment/Plan Problems: (1) COPD exacerbation (2) Bronchitis (3) Cachexia (4) Debility Subjective Allergies: Coded Allergies: No Known Allergies (Unverified , 12/10/14) Objective Last 24 Hour Vital Signs Date Time Temp Pulse Resp B/P Pulse Ox O2 Delivery O2 Flow Rate FiO2 03/05/17 15:26 40 03/05/17 15:25 110 20 96 Venturi Mask 8.0 40 03/05/17 12:01 98.0 104 20 155/87 97 03/05/17 10:59 103 22 100 Venturi Mask 8.0 40 03/05/17 10:51 40 03/05/17 10:51 105 20 97 Venturi Mask 8.0 40 03/05/17 08:15 98.6 116 21 143/64 98 Room Air 03/05/17 07:35 105 22 100 Venturi Mask 8.0 40 03/05/17 07:27 40 03/05/17 07:27 98 Venturi Mask 8.0 40 03/05/17 07:27 Venturi Mask 8.0 40 03/05/17 07:27 101 20 98 Venturi Mask 8.0 40 03/05/17 04:00 97.7 98 18 148/84 98 Room Air 03/05/17 03:32 96 22 99 Venturi Mask 6.0 40 03/05/17 03:24 93 24 93 Venturi Mask 8.0 40 03/05/17 03:24 40 03/05/17 00:00 97.7 99 18 162/82 99 Venturi Mask 9.0 40 03/04/17 22:14 98 22 98 Venturi Mask 8.0 40 03/04/17 22:05 40 03/04/17 22:04 101 24 93 Venturi Mask 8.0 40 03/04/17 19:15 98 18 99 Venturi Mask 6.0 35 03/04/17 19:15 97 18 99 Venturi Mask 6.0 40 03/04/17 19:08 40 03/04/17 19:07 Venturi Mask 8.0 40 03/04/17 19:07 97 Venturi Mask 8.0 40 03/04/17 19:07 96 20 97 Venturi Mask 8.0 40 03/04/17 19:00 97.4 90 20 138/79 97 Venturi Mask 10.0 03/04/17 16:00 96.4 95 20 142/80 98 Venturi Mask 10.0 Intake and Output 03/04/17 03/05/17 19:00 07:00 Intake Total 470.0 ml Balance 470.0 ml Intake Oral 360 ml IV Total 110.0 ml # Voids 3 5 # Bowel Movements 1 Microbiology Date/Time Source Procedure Growth Status 03/02/17 18:55 Blood Blood Culture - Preliminary NO GROWTH AFTER 48 HOURS Resulted 03/02/17 18:45 Blood Blood Culture - Preliminary NO GROWTH AFTER 48 HOURS Resulted Laboratory Tests 03/05/17 04:45: White Blood Count 7.4, Red Blood Count 4.18L, Hemoglobin 13.8, Hematocrit 43.6, Mean Corpuscular Volume 105H, Mean Corpuscular Hemoglobin 33.1H, Mean Corpuscular Hemoglobin Concent 31.7L, Red Cell Distribution Width 13.6, Platelet Count 208, Mean Platelet Volume 7.7, Neutrophils (%) (Auto) , Lymphocytes (%) (Auto) , Monocytes (%) (Auto) , Eosinophils (%) (Auto) , Basophils (%) (Auto) , Differential Total Cells Counted 100, Neutrophils % ( Manual) 88H, Lymphocytes % (Manual) 2L, Monocytes % (Manual) 9, Eosinophils % ( Manual) 0, Basophils % (Manual) 0, Band Neutrophils 1, Platelet Estimate Adequate, Platelet Morphology Normal, Anisocytosis 1+, Macrocytosis 1+, Erythrocyte Sedimentation Rate 50H, Sodium Level 141, Potassium Level 5.0H, Chloride Level 100, Carbon Dioxide Level 23, Anion Gap 18H, Blood Urea Nitrogen 16, Creatinine 0.9, Estimat Glomerular Filtration Rate > 60, Glucose Level 164H , Calcium Level 8.7, Phosphorus Level 3.3, Magnesium Level 2.2, Total Bilirubin 0.5, Aspartate Amino Transf (AST/SGOT) 30, Alanine Aminotransferase (ALT/SGPT) 23, Alkaline Phosphatase 47, Total Protein 6.2L, Albumin 3.7, Globulin 2.5, Albumin/Globulin Ratio 1.4 Current Medications Medications (Trade) Dose Ordered Sig/Khloe Route PRN Reason Start Time Stop Time Status Last Admin Dose Admin Acetaminophen/ Hydrocodone Bitart ([place] 5/325) 1 tab Q4H PRN ORAL Moderate Pain (Pain Scale 4-6) 03/04/17 14:30 03/11/17 14:29 03/05/17 02:47 Albuterol/ Ipratropium (DuoNeb 0.5-3(2.5)mg/3ml) 3 ml Q4HRT HHN 03/04/17 15:00 03/09/17 14:59 03/05/17 15:25 Aspirin (ASA) 81 mg DAILY ORAL 03/05/17 09:00 04/04/17 08:59 03/05/17 08:49 Dextrose (Dextrose 50%) STAT PRN IV Hypoglycemia 03/04/17 14:30 04/03/17 14:29 Heparin Sodium (Porcine) (Heparin 5000 units/ml) 5,000 units EVERY 12 HOURS SUBQ 03/04/17 21:00 04/03/17 20:59 03/05/17 08:48 Insulin Aspart (NovoLOG) BEFORE MEALS AND HS SUBQ 03/04/17 16:30 04/03/17 16:29 03/05/17 12:05 Lorazepam (Ativan 2mg/ml 1ml) 0.5 mg Q4H PRN IV For Anxiety 03/04/17 15:00 03/11/17 14:59 Methylprednisolone Sodium Succinate (Solu-MEDROL) 60 mg EVERY 12 HOURS IV 03/04/17 21:00 04/03/17 20:59 03/05/17 08:47 Morphine Sulfate (Morphine Sulfate) 2 mg Q4H PRN IVP Severe Pain (Pain Scale 7-10) 03/04/17 15:30 03/11/17 15:29 Nitroglycerin (Ntg) 0.4 mg Q5M X 3 DOSES PRN SL Prn Chest Pain 03/04/17 15:00 04/03/17 14:59 Ondansetron HCl (Zofran) 4 mg Q6H PRN IVP Nausea & Vomiting 03/04/17 14:30 04/03/17 14:29 Piperacillin Sod/ Tazobactam Sod/ Sodium Chloride (Zosyn/Sodium Chloride) 110 ml @ 27.5 mls/hr EVERY 8 HOURS IVPB 03/04/17 22:00 03/11/17 21:59 03/05/17 13:22 Pravastatin Sodium (Pravachol) 20 mg BEDTIME ORAL 03/04/17 21:00 04/03/17 20:59 03/04/17 22:03 Promethazine HCl/ Codeine (Phenergan with Codeine) 5 ml Q6H PRN ORAL cough 03/04/17 14:30 04/03/17 14:29 Temazepam (Restoril) 15 mg HSPRN PRN ORAL Insomnia 03/04/17 21:00 03/11/17 20:59 Theophylline (Faisal-Dur) 100 mg EVERY 12 HOURS ORAL 03/04/17 21:00 04/03/17 20:59 03/05/17 08:47 MARITZA SNEED Mar 05, 2017 15:47
[2017-03-05 16:00] VITALS: BP 151/97
--- NOTE | 2017-03-05 16:10 | Internal Med Progress Note ---
Subjective Date of Service: Mar 05, 2017 Physician Name Jesus Wall Attending Physician Marco Gomez MD Current Medications Medications (Trade) Dose Ordered Sig/Khloe Route PRN Reason Start Time Stop Time Status Last Admin Dose Admin Acetaminophen/ Hydrocodone Bitart ([place] 5/325) 1 tab Q4H PRN ORAL Moderate Pain (Pain Scale 4-6) 03/04/17 14:30 03/11/17 14:29 03/05/17 02:47 Albuterol/ Ipratropium (DuoNeb 0.5-3(2.5)mg/3ml) 3 ml Q4HRT HHN 03/04/17 15:00 03/09/17 14:59 03/05/17 15:25 Aspirin (ASA) 81 mg DAILY ORAL 03/05/17 09:00 04/04/17 08:59 03/05/17 08:49 Dextrose (Dextrose 50%) STAT PRN IV Hypoglycemia 03/04/17 14:30 04/03/17 14:29 Heparin Sodium (Porcine) (Heparin 5000 units/ml) 5,000 units EVERY 12 HOURS SUBQ 03/04/17 21:00 04/03/17 20:59 03/05/17 08:48 Insulin Aspart (NovoLOG) BEFORE MEALS AND HS SUBQ 03/04/17 16:30 04/03/17 16:29 03/05/17 12:05 Lorazepam (Ativan 2mg/ml 1ml) 0.5 mg Q4H PRN IV For Anxiety 03/04/17 15:00 03/11/17 14:59 Methylprednisolone Sodium Succinate (Solu-MEDROL) 60 mg EVERY 12 HOURS IV 03/04/17 21:00 04/03/17 20:59 03/05/17 08:47 Morphine Sulfate (Morphine Sulfate) 2 mg Q4H PRN IVP Severe Pain (Pain Scale 7-10) 03/04/17 15:30 03/11/17 15:29 Nitroglycerin (Ntg) 0.4 mg Q5M X 3 DOSES PRN SL Prn Chest Pain 03/04/17 15:00 04/03/17 14:59 Ondansetron HCl (Zofran) 4 mg Q6H PRN IVP Nausea & Vomiting 03/04/17 14:30 04/03/17 14:29 Piperacillin Sod/ Tazobactam Sod/ Sodium Chloride (Zosyn/Sodium Chloride) 110 ml @ 27.5 mls/hr EVERY 8 HOURS IVPB 03/04/17 22:00 03/11/17 21:59 03/05/17 13:22 Pravastatin Sodium (Pravachol) 20 mg BEDTIME ORAL 03/04/17 21:00 04/03/17 20:59 03/04/17 22:03 Promethazine HCl/ Codeine (Phenergan with Codeine) 5 ml Q6H PRN ORAL cough 03/04/17 14:30 04/03/17 14:29 Temazepam (Restoril) 15 mg HSPRN PRN ORAL Insomnia 03/04/17 21:00 03/11/17 20:59 Theophylline (Faisal-Dur) 100 mg EVERY 12 HOURS ORAL 03/04/17 21:00 04/03/17 20:59 03/05/17 08:47 Allergies: Coded Allergies: No Known Allergies (Unverified , 12/10/14) ROS Limited/Unobtainable: No Constitutional: Reports: no symptoms HEENT: Reports: no symptoms Cardiovascular: Reports: no symptoms Respiratory: Reports: no symptoms Gastrointestinal/Abdominal: Reports: no symptoms Genitourinary: Reports: no symptoms Neurologic/Psychiatric: Reports: no symptoms Subjective 71 YO F admitted with COPD exacerbation and bronchitis. Await discharge home today. Cover for Int Med-Dr Gomez. Objective Last Vital Signs Date Time Temp Pulse Resp B/P Pulse Ox O2 Delivery O2 Flow Rate FiO2 03/05/17 15:47 112 20 91 Room Air 03/05/17 15:26 40 03/05/17 15:25 8.0 03/05/17 12:01 98.0 155/87 Laboratory Tests Test 03/05/17 04:45 White Blood Count 7.4 K/UL (4.8-10.8) Red Blood Count 4.18 M/UL (4.20-5.40) L Hemoglobin 13.8 G/DL (12.0-16.0) Hematocrit 43.6 % (37.0-47.0) Mean Corpuscular Volume 105 FL (80-99) H Mean Corpuscular Hemoglobin 33.1 PG (27.0-31.0) H Mean Corpuscular Hemoglobin Concent 31.7 G/DL (32.0-36.0) L Red Cell Distribution Width 13.6 % (11.6-14.8) Platelet Count 208 K/UL (150-450) Mean Platelet Volume 7.7 FL (6.5-10.1) Neutrophils (%) (Auto) % (45.0-75.0) Lymphocytes (%) (Auto) % (20.0-45.0) Monocytes (%) (Auto) % (1.0-10.0) Eosinophils (%) (Auto) % (0.0-3.0) Basophils (%) (Auto) % (0.0-2.0) Differential Total Cells Counted 100 Neutrophils % (Manual) 88 % (45-75) H Lymphocytes % (Manual) 2 % (20-45) L Monocytes % (Manual) 9 % (1-10) Eosinophils % (Manual) 0 % (0-3) Basophils % (Manual) 0 % (0-2) Band Neutrophils 1 % (0-8) Platelet Estimate Adequate Platelet Morphology Normal Anisocytosis 1+ Macrocytosis 1+ Erythrocyte Sedimentation Rate 50 MM/HR (0-30) H Sodium Level 141 mEQ/L (135-145) Potassium Level 5.0 mEQ/L (3.4-4.9) H Chloride Level 100 mEQ/L (98-107) Carbon Dioxide Level 23 mEQ/L (20-30) Anion Gap 18 (5-15) H Blood Urea Nitrogen 16 mg/dL (7-23) Creatinine 0.9 mg/dL (0.5-0.9) Estimat Glomerular Filtration Rate > 60 mL/min (>60) Glucose Level 164 mg/dL (74-106) H Calcium Level 8.7 mg/dL (8.6-10.2) Phosphorus Level 3.3 mg/dL (2.5-4.8) Magnesium Level 2.2 mg/dL (1.7-2.5) Total Bilirubin 0.5 mg/dL (0.0-1.2) Aspartate Amino Transf (AST/SGOT) 30 U/L (5-40) Alanine Aminotransferase (ALT/SGPT) 23 U/L (3-33) Alkaline Phosphatase 47 U/L (35-104) Total Protein 6.2 g/dL (6.6-8.7) L Albumin 3.7 g/dL (3.5-5.2) Globulin 2.5 g/dL Albumin/Globulin Ratio 1.4 (1.0-2.7) Microbiology Date/Time Source Procedure Growth Status 03/02/17 18:55 Blood Blood Culture - Preliminary NO GROWTH AFTER 48 HOURS Resulted 03/02/17 18:45 Blood Blood Culture - Preliminary NO GROWTH AFTER 48 HOURS Resulted Intake and Output 03/04/17 03/05/17 19:00 07:00 Intake Total 470.0 ml Balance 470.0 ml Intake Oral 360 ml IV Total 110.0 ml # Voids 3 5 # Bowel Movements 1 Objective General Appearance: mild distress, cachetic, thin EENT: PERRL/EOMI, normal ENT inspection, TMs normal Neck: non-tender, normal alignment, supple, normal inspection Cardiovascular: normal peripheral pulses, normal rate, regular rhythm, no gallop/murmur, no JVD Respiratory/Chest: chest wall non-tender, respiratory distress, crackles/rales , rhonchi - bilaterally, expiratory wheezing Abdomen: normal bowel sounds, non tender, soft, no organomegaly, no mass Extremities: normal range of motion, non-tender 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 See pulmonary note. (4) Dyspnea (5) Bronchitis Assessment & Plan: continue zosyn (6) Hypercholesterolemia Assessment & Plan: cont pravastatin. Assessment/Plan D/C home today when cleared by pulmonary. JESUS WALL Mar 05, 2017 16:10
--- NOTE | 2017-03-08 08:33 | Discharge Summary ---
Discharge Summary Hospital Course Date of Admission Mar 02, 2017 at 21:50 Date of Discharge Mar 05, 2017 at 18:08 Admitting Diagnosis dyspnea HPI Jay Cordon is a 71 year old female who was admitted on Mar 02, 2017 at 21:50 for Dyspnea Hospital Course dc summary #[id number] Discharge Medications Continued Medications: Acetaminophen (Acetaminophen) 650 Mg/20.3 Ml Soln 650 MG ORAL Q6H PRN for Prn Headache/Temp > 101, ML 0 Refills Alendronate Sodium (Alendronate Sodium) 70 Mg/75 Ml Solution 70 MG PO QWEEK Clonidine Hcl* (Catapres*) 0.1 Mg Tablet 0.1 MG ORAL TID, TAB Cyproheptadine Hcl (Cyproheptadine Hcl) 4 Mg Tablet 4 MG PO PRN PRN for Itching, TAB Docusate Sodium* (Docusate Sodium*) 250 Mg Capsule 250 MG ORAL DAILY, CAP Hydrocodone Bit/Acetaminophen 5-325* ([place] 5-325*) 1 Each Tablet 1 TAB ORAL Q4H PRN for For Pain, TAB 0 Refills Ipratropium [place] 0.5MG/2.5ML (Ipratropium [place] 0.5MG/2.5ML) 0.2 Mg/1 Ml Solution 0.5 MG HHN Q4HR PRN for Shortness of Breath, #28 EA Multivitamins* (Multivitamins*) 1 Each Tablet 1 TAB ORAL DAILY, TAB 0 Refills Nitroglycerin (Nitrostat) 0.4 Mg Tab.subl 0.4 MG SL PRN for cp, TAB Omeprazole (Omeprazole) 20 Mg Capsule.dr 20 MG ORAL DAILY, CAP Prednisone (Prednisone) 20 Mg Tablet 20 MG PO DAILY, TAB Sucralfate* (Carafate*) 1 Gm Tablet 1 GM ORAL FOUR TIMES A DAY, TAB Tiotropium [place]* (Spiriva*) 18 Mcg Cap.w.dev 1 PUFF INH DAILY, EA Unable to Obtain Medications (Unable To Obtain Meds) 1 Ea Ea Discontinued Medications: Pravastatin Sod* (Pravastatin Sod*) 20 Mg Tablet 20 MG ORAL BEDTIME, TAB Discharge Condition Upon Discharge: stable Discharge Disposition Patient was discharged to Home (01) Discharge Diagnoses: Discharge Instructions Discharge Instructions Special Instructions I have been assigned to complete a D/C Summary on this account. I was not involved in the patient management Hodge (Vanchtein)Crys MARISCAL Mar 08, 2017 08:33
--- NOTE | 2017-03-08 14:08 | Discharge Summary 2 SIG ---
DATE OF ADMISSION: 03/02/2017 DATE OF DISCHARGE: 03/05/2017 REASON FOR ADMISSION: 71-year-old female came to emergency room complaining of severe shortness of breath for one day. The patient reported dry cough and wheezing, but no fever and no chills. The patient denied chest pain, abdominal pain, or urinary complaints. The patient tried nebulizer at home without no obvious relief. In route by the paramedics, she was given nebulizing treatment. The patient has a history of asthma. She has never been intubated, but had been on the BiPAP prior to this episode. Workup in the emergency room revealed no leukocytosis, stable hemoglobin and hematocrit. Chest x-ray revealed no evidence of pneumonia, but demonstrated changes consistent with COPD. The patient was initially placed on the BiPAP. Magnesium, nebulizing treatment, steroids, empiric antibiotics started. Blood culture were drawn. EKG showed normal sinus rhythm. Troponin was negative. The patient admitted to the hospital for further management. ADMITTING DIAGNOSES: 1. Acute chronic obstructive pulmonary disease exacerbation. 2. Acute bronchitis. 3. Hypertension. HOSPITAL STAY: The patient admitted to the hospital. The patient was initially on the BiPAP which was titrated and subsequently downgraded to the oxygen via nasal cannula then to the room air. Pulse oximetry stable on room air prior to discharge. The patient was receiving pulmonary toilet such as nebulizing treatment and CPT. The patient started on IV steroids, which were tapered and changed to the oral steroids with tapering upon discharge. The patient started on the empiric IV antibiotics. Blood culture were negative. Antitussive provided as needed. The patient was on theophylline. DVT prophylaxis provided. The patient noted to be cachectic. The patient started on appetite stimulant. Blood pressure was managed with Cardizem and was stable. Fosamax was continued for osteoporosis. Statin stopped due to the elevated CK. The patient to be follow up with primary medical doctor as outpatient for checking lipid panel as well as alpesh donahue CK. Troponin was negative. The patient was stable for discharge.The patient declined placement to the detention facility. The patient wanted to go home. DISCHARGE DIAGNOSES: 1. Acute chronic obstructive pulmonary disease exacerbation. 2. Acute bronchitis. 3. Hypertension. 4. Osteoporosis. 5. Hypercholesterolemia. 6. Cachexia. 7. Debility. DISCHARGE MEDICATIONS: See medication reconciliation list. DISCHARGE INSTRUCTIONS: The patient to follow up with the primary medical doctor in next week. Marco Gomez M.D. I have been assigned to dictate discharge summary on this account and I was not involved in the patient's management. Crys Hodge (Vanchtein) NBakari DR: More JOB#: [id number] CC: SANNA
== END 2017-03-05 18:08 | disposition home health service (06) | DRG 191 ==
LOC: EDUNIT# 17:59 → EDBD 17:59 → EMR 21:49 → 2W 21:50 → EDBEDREQ 03-03 00:55 → 4E 03-04 14:48
DX: J44.1 Chronic obstructive pulmonary disease with (acute) exacerbation (principal); R64 Cachexia; M81.0 Age-related osteoporosis without current pathological fracture; J20.9 Acute bronchitis, unspecified; J44.0 Chronic obstructive pulmonary disease with (acute) lower respiratory infection; I10 Essential (primary) hypertension; E78.00 Pure hypercholesterolemia, unspecified; R53.81 Other malaise
CPT/HCPCS: 36415; 71010; 80053; 82550; 82553; 82962; 83735; 83880; 84100; 84484; 85007; 85025; 85651; 87040; 93005; 94640; 94664; 94760; J1815; J2405; J7620